=== PATIENT | male | born 1950 | race African-American/Black ===

== ENCOUNTER → 2020-10-07 | Day surgery (SDC) | payer MEDICARE ==
[~2020-10-07] MED LIST: CHOL500016 PO; LIDOCAINE 2%/EPI 1:100,000 20 ML VIAL. IJ ONE; LIDOCAINE 2%/EPI 1:100,000 20 ML VIAL. INJ ONE; MULT1TAB49 PO
[2020-10-07 10:12] VITALS: BP 115/69
--- NOTE | 2020-10-07 11:50 | PDOC ---
SURGICAL PROGRESS NOTE DATE: 10/07/20 TIME: 11:48 nO CHANGE IN DICTATED h&p. Vital Signs Vital Signs Date Time Temp Pulse Resp B/P (MAP) Pulse Ox O2 Delivery O2 Flow Rate FiO2 10/07/20 10:12 65 20 98 Justicifation of Admission Dx: Justifications for Admission: Justification of Admission Dx: Yes NOEL NORIEGA MD Oct 07, 2020 11:50
--- NOTE | 2020-10-07 11:52 | PDOC ---
SURGICAL PROGRESS NOTE DATE: 10/07/20 TIME: 11:50 Op Note: surgeon................................Keith Anesthesia............................2% lidocaine with epi Pre op diag...........................CA skin right axilla Post op diag.........................same Procedure............................wide excision previous surgical site Drains.................................none Blood loss............................3cc Fluids..................................none condition.............................satisfactory Vital Signs Vital Signs Date Time Temp Pulse Resp B/P (MAP) Pulse Ox O2 Delivery O2 Flow Rate FiO2 10/07/20 10:12 65 20 98 Justicifation of Admission Dx: Justifications for Admission: Justification of Admission Dx: Yes NOEL NORIEGA MD Oct 07, 2020 11:52
--- NOTE | 2020-10-07 12:04 | DISCH ---
DISCHARGE INSTRUCTIONS Condition on Discharge Condition on Discharge: Stable Activity After Discharge Activity Instructions for Disc: No restrictions Diet after Discharge Additional Diet Restrictions: prn Wound Incision Care Other wound/incision instructi: keep wound dry and clean..H@O@ Follow-Up Follow up with: make appt to see Dr. Noriega 7-10 days NOEL NORIEGA MD Oct 07, 2020 12:04
--- NOTE | 2020-10-07 18:06 | OP ---
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 ANESTHESIA: 1% lidocaine with epinephrine. PROCEDURE: Wide excision of previous cancer site. TECHNIQUE: Under local anesthesia, the area had been properly prepped in a routine fashion. We did not do the anesthesia in the operative field until after it was properly prepped and draped. The arm was extended so that we could see the axilla. We could see a small scar that was there where the cancer had been removed. Actually, he had a mass removed, which proved to be cancer. They did not think it was cancer to start with. There were foci of this in the specimen and that is why we had to do the wide excision today. At any rate, we prepped the area and draped it in a routine fashion. I used 1% lidocaine with epinephrine to anesthetize the skin and made a fusiform incision going about a centimeter in all directions around the scar. We first tried to follow the skin lines and did an incision with a 15 blade. It was about 4 cm in size to get completely around it and as such, we slowly went around the area. We then used Metzenbaum scissors to cut it from the underlying tissue, taking deep bites into the subcutaneous to get well around where the biopsy had been done. We marked one end of it with a 5-0 nylon. This was a posterior caudad end of the wound. The resultant defect was inspected. We used interrupted 4-0 Vicryl to close the subcutaneous and deep tissues and used interrupted 5-0 nylon to close the skin. The procedure was now terminated. The sterile dressing was applied. The blood loss was probably 2-3 mL. Fluids given none, no drains were used and the condition of the patient was satisfactory as he has returned to the holding area. AMBROSIO NORIEGA MD DR: TAYLOR/francisco JOB#: [id number] / [id number]
--- NOTE | 2020-10-08 10:23 | PREOP HP ---
DATE OF SERVICE: 10/07/2020 HISTORY OF PRESENT ILLNESS: The patient has to come to me because of a mass of the right axilla. Apparently at [facility], he had a biopsy done or excision of a mass, which proved to be cancer of the skin. The margins were narrow and it was suggested that it would be more widely excised. He did not go back to [place], but saw signal repairer, . ____ was sent to me for this. The patient otherwise is doing well. PAST MEDICAL HISTORY: Shows normal childhood diseases. No high blood pressure, cancer, TB, asthma or other problems. ALLERGIES: He has no allergies. MEDICATIONS: Takes no medications. FAMILY HISTORY: Noncontributory. REVIEW OF SYSTEMS: Negative. He has no problems with any systems. SOCIAL HISTORY: The patient drinks only socially, does not use illicit drugs and does not smoke. PHYSICAL EXAMINATION: GENERAL: Shows an alert male, in no acute distress. HEAD, EYES, NOSE AND THROAT: Grossly normal. CHEST: Clear to auscultation bilaterally. HEART: Had no murmurs, heaves, friction rubs or other abnormalities and the rate was 68 beats per minute and was regular. ABDOMEN: Grossly normal. EXTREMITIES: Grossly normal. AXILLA: Examination of the right axilla did show an incision about inch and half in length at the axilla following the skin lines. It was healed. There were no other abnormalities and this is the previous site of the excision of the mass. 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 NOEL NORIEGA MD DR: TAYLOR/francisco JOB#: [id number] / [id number]
--- NOTE | 2020-10-10 09:08 | PATHOLOGY ---
[facility] [place] Accession Number: [id number] . 01 Material submitted: . axilla - RIGHT AXILLARY MASS. Modifiers: right . 01 Clinical history: . SUTURE AT POSTERIOR WIDE EXCISION SURGICAL SITE RIGHT AXILLA SQUAMOUS CELL . 02 Diagnosis: Skin and subcutaneous tissue, right axilla wide re-excision: - Previous biopsy site showing scarring, focal chronic inflammation, and focal foreign body giant cell reaction - no residual squamous cell carcinoma identified. - Inked margins of excision free of neoplasm. (JPM:dana; 10/09/2020) MBR 10/10/2020 0852 Local . 02 Electronically signed: . Austin Alvarenga MD, Pathologist NPI- [id number] . 01 Gross description: . The specimen is received in formalin, labeled "Austin Meza, right axillary mass wide excision". Received is an oriented ellipse of skin measuring 2.5 x 0.8 x 0.9 cm in greatest dimensions with a suture placed at one tip, which will arbitrarily be designated as the 12:00. The surgical margins are inked as follows: 12 to 3:00-yellow, 3 to 6:00-blue, and 6 to 12:00-black. The epidermal surface is light brown in appearance with a linear furrow identified measuring 1.4 cm in length. The specimen is sectioned into seven pieces and entirely submitted in cassettes A1 through A3, with the 12 and 6:00 aspects placed in cassette A3. (CAA; 10/08/2020) QAC/QAC 10/08/2020 1023 Local . 02 Pathologist provided ICD-10: L90.5, L98.9 . 02 CPT . 583086 Specimen Comment: A courtesy copy of this report has been sent to [phone] Specimen Comment: Report sent to / Performed at: 01 [facility] [address] [facility] [address], [place] [id number] MD Asher Lozano MD Phone: [phone] Performed at: 02 [facility] [address] [place], [place] [id number] MD Austin Alvarenga MD Phone: [phone]
== END | disposition home or self-care (01) ==
LOC: LAB 10-03 13:47 → SDC 09:40
PROVIDERS: ATTEND Specialist
DX: L90.5 Scar conditions and fibrosis of skin (principal); L98.9 Disorder of the skin and subcutaneous tissue, unspecified; Z20.822 Contact with and (suspected) exposure to COVID-19; Z85.828 Personal history of other malignant neoplasm of skin; Z79.899 Other long term (current) drug therapy; Z72.89 Other problems related to lifestyle; Z98.890 Other specified postprocedural states; Z87.891 Personal history of nicotine dependence
CPT/HCPCS: 11603; 88305; C9803; J3490; U0003